=== PATIENT | female | born 1985 | race Asian ===

== ENCOUNTER 2017-12-25 10:21 | Outpatient (CLI) | payer OTHER ==
--- NOTE | 2017-12-25 12:12 | ULT ---
OBSTETRICAL ULTRASOUND: Date: 12/25/17 COMPARISON: None. HISTORY: 32-year-old female undergoing evaluation for size and dates, anatomy examination. TECHNIQUE: Multiplanar Adrian scale sonographic imaging of the gravid uterus obtained. FINDINGS: A single intrauterine gestation is present, demonstrating a breech presentation. The placenta is located in the fundus with extension into the anterior and posterior aspect of the ut erine fundus. The umbilical cord and cord insertion, nose and lips, urinary bladder, spine, kidneys, intracranial c ontents, and heart appear unremarkable. Amniotic fluid index measures 12.5 cm, within normal limits. stomach unremarkable. Biometry: BPD: 5.6 cm, 23 weeks/0 days HC: 20.4 cm, 22 weeks/4 days AC: 18.2 cm, 23 weeks/0 days FL: 4.0 cm, 23 weeks/0 days Average age based on ultrasound is 22 weeks/6 days with estimated date of delivery on 04/24/18. Estimated weight is 552 gm, +/- 82 gm. IMPRESSION: Single intrauterine gestation as described above. POS: [facility]
== END 2017-12-25 10:22 | disposition home or self-care (01) ==
LOC: SCSULT 10:21
PROVIDERS: ATTEND Family Medicine
DX: Z34.92 Encounter for supervision of normal pregnancy, unspecified, second trimester (principal); Z3A.17 17 weeks gestation of pregnancy
CPT/HCPCS: 76805

== ENCOUNTER 2018-04-19 08:35 | Inpatient (IN) | payer MEDICAID, OTHER, SELFPAY ==
--- NOTE | 2018-04-15 05:11 | HP ---
HISTORY OF PRESENT ILLNESS This is a 32-year-old lady at 39 weeks gestation with EDC of 2017. She is being admitted for elective induction. She has a history of 2 prior inductions. This course has been uncomplicated. The patient has been having contractions off and on for the past week. PAST MEDICAL HISTORY: History of kidney stones. ALLERGIES: PENICILLIN. PAST SURGICAL HISTORY: Spontaneous vaginal delivery x2. FAMILY HISTORY: Positive for hypertension and heart disease. SOCIAL HISTORY: She is . She has 2 boys. She is a nonsmoker. REVIEW OF SYSTEMS: As above. PHYSICAL EXAMINATION: VITAL SIGNS: Stable, afebrile. HEARTl Clear. LUNGS: Clear. ABDOMEN: Gravid. Cervix 2 cm, 50%, -2. EXTREMITIES: With no edema. LABORATORY AND X-RAY FINDINGS: GBS positive, 3-hour GTT normal. A1c 4.7. HIV negative. Paps are n egative, GC chlamydia negative. Thyroid normal. Hepatitis B negative, RPR negative. Urine culture negative. Rubella immune A positive blood type. ASSESSMENT: 1. A 39-week intrauterine . 2. GBS positive. PLAN: 1. Routine orders. 2. Routine anesthesia orders. 3. Cytotec/Pitocin induction. 4. GBS protocol. The patient .
[2018-04-19 09:14] VITALS: BMI 21.2
[2018-04-19] MEDS ORDERED: Ibuprofen 800 MG TAB PO PRN (09:15)
[2018-04-19] MEDS ORDERED: HYDROcodone/Acetaminophen 5/325 mg Tablet PO PRN ×2 (09:15→21:48)
[2018-04-19] MEDS ORDERED: Ondansetron HCl/PF 4 MG/2 ML Vial IVP PRN ×3 (09:15→21:48)
[2018-04-19] MEDS ORDERED: NS w/ Oxytocin 10 units 500 ML IV SCH (09:15)
[2018-04-19] MEDS ORDERED: Docusate 100 MG CAP PO PRN (09:15)
[2018-04-19] MEDS ORDERED: Misoprostol 200 MCG TAB PR PRN (09:15)
[2018-04-19] MEDS ORDERED: Butorphanol Tartrate 1 MG/ML VIAL SLOW IVP PRN (09:15)
[2018-04-19] MEDS ORDERED: Promethazine HCl 25 MG/ML VIAL IM PRN ×2 (09:15→15:20)
[2018-04-19] MEDS ORDERED: Methylergonovine 0.2 MG/ML VIAL IM PRN (09:15)
[2018-04-19] MEDS ORDERED: Lidocaine 1% (PF) 30 ML VIAL SC PRN (09:15)
[2018-04-19] MEDS ORDERED: Acetaminophen 500 MG TAB PO PRN (09:15)
[2018-04-19] MEDS: Lactated Ringer's 1,000 ML IV SCH ×3 (09:34→15:42)
[2018-04-19] MEDS: CEFAZOLIN 1 GM in Sodium Chloride 0.9% 100 ML IVPB SCH ×2 (09:45→17:14)
[2018-04-19 10:25] LABS: Hemoglobin 12.9 g/dL (12.0-16.0); Mean Corpuscular HGB CONC 36.1 g/dL (32.0-36.0); Mean Corpuscular Hemoglobin 34.8 pg (27.0-31.0); Mean Corpuscular Volume 96.6 fL (78.0-98.0); Platelet Count 105 thou/uL (130-400); RBC Distribution Width 12.5 % (11.5-14.5); Red Blood Cell (RBC) Count 3.71 mill/uL (4.20-5.40); White Blood Cell (WBC) Count 6.2 thou/uL (4.8-10.8)
[2018-04-19 10:30] LABS: HBSAg Index 0.23 S/CO (0-0.99); Hep B Surf Ag Non-Reactive S/CO (NonReactive)
[2018-04-19 12:55] LABS: Syphilis Antibody Nonreactive (Nonreactive); Syphilis Antibody Index 0.05 S/CO (<1.00 Non-Reactive)
[2018-04-19] MEDS: Misoprostol 100 MCG TAB VAG SCH ×2 (13:20→16:42)
[2018-04-19] MEDS ORDERED: DISCONTINUE ALL PREVIOUS NARCOTICS FS SCH (14:45)
[2018-04-19] MEDS ORDERED: Bupivacaine 0.5% 20 ML, fentaNYL Citrate/PF 400 MCG in Sodium Chloride 0.9% 72 ML EPIDURAL SCH (14:45)
[2018-04-19] MEDS ORDERED: Lactated Ringer's 500 ML IV PRN (15:20)
[2018-04-19] MEDS ORDERED: ePHEDrine/0.9% NaCl/PF SYRINGE 50 mg/10 ml SLOW IVP PRN (15:20)
[2018-04-19] MEDS ORDERED: Naloxone HCl 0.4 mg/ml Vial IVP PRN ×2 (15:20)
[2018-04-19] MEDS ORDERED: diphenhydrAMINE 50 MG/ML VIAL IVP PRN (15:20)
[2018-04-19] MEDS ORDERED: Eucerin (Mineral Oil/Petrolatum,White) 30 gm Jar TOP PRN (15:20)
[2018-04-19] MEDS ORDERED: Acetaminophen 325 MG TAB PO PRN (15:20)
[2018-04-19] MEDS ORDERED: fentaNYL Citrate/PF 400 MCG, Bupivacaine 0.5% 20 ML in Sodium Chloride 0.9% 72 ML EPIDURAL SCH (15:30)
[2018-04-19] MEDS ORDERED: Communication Order-Pharmacy FS SCH (15:30)
[2018-04-19] MEDS: NS / Oxytocin 40 units/1000ml 1,000 ML IV PRN ×2 (17:39→18:48)
[2018-04-19] MEDS ORDERED: Acetaminophen/Codeine 30-300mg Tablet PO PRN (21:48)
[2018-04-19] MEDS ORDERED: Adacel (T-DAP) 0.5 ML VIAL IM ONE (21:48)
[2018-04-19] MEDS ORDERED: NS / Oxytocin 40 units/1000ml 1,000 ML IV SCH (21:48)
[2018-04-19] MEDS ORDERED: Bisacodyl 10 MG SUPP PR PRN (21:48)
[2018-04-19] MEDS ORDERED: Milk Of Magnesia 30 ML UDCUP PO PRN (21:48)
[2018-04-19] MEDS ORDERED: diphenhydrAMINE 25 MG CAP PO PRN (21:48)
--- NOTE | 2018-04-19 23:12 | OP ---
DATE OF SURGERY: 04/19/2018 PREOPERATIVE DIAGNOSES: 1. Term . 2. Prior vaginal delivery x2. POSTOPERATIVE DIAGNOSES: 1. Term . 2. Prior vaginal delivery x2. PROCEDURE: Spontaneous vaginal delivery. SURGEON: Abdi Bernal M.D. PROCEDURE IN DETAIL: This is a 32-year-old female, G3, P2 taken to delivery for completing pus salud. Prepped and draped sterilely. Delivered a baby girl with Apgars 9 at one minute, 9 at five mi nutes. Baby did breathe and cry vigorously upon delivery. Mother and baby did very well. Delivered placenta, 3-vessel intact. No lacerations were present. Estimated blood loss was 150 mL.
[2018-04-19] MEDS: Docusate Calcium (SURFAK) 240 MG CAP PO SCH (23:39)
[2018-04-20 06:04] LABS: Hemoglobin 11.6 g/dL (12.0-16.0); Mean Corpuscular HGB CONC 34.4 g/dL (32.0-36.0); Mean Corpuscular Hemoglobin 33.7 pg (27.0-31.0); Mean Corpuscular Volume 97.9 fL (78.0-98.0); Mean Platelet Volume 10.2 fL (7.4-10.4); Platelet Count 86 thou/uL (130-400); RBC Distribution Width 12.5 % (11.5-14.5); Red Blood Cell (RBC) Count 3.44 mill/uL (4.20-5.40); White Blood Cell (WBC) Count 8.6 thou/uL (4.8-10.8)
[2018-04-20] MEDS: Ferrous Sulfate 325 MG TAB PO SCH ×2 (08:59→18:05)
[2018-04-20] MEDS: Docusate Calcium (SURFAK) 240 MG CAP PO SCH (08:59)
[2018-04-20] MEDS ORDERED: Prenatal Vitamin 1 TAB PO SCH (09:00)
[2018-04-20] MEDS ORDERED: Bupivacaine/Epinephrine 0.25% 30 ML VIAL ONE (09:00)
[2018-04-20 20:35] VITALS: BP 112/55; TEMP 97.4
== END 2018-04-20 20:20 | disposition home or self-care (01) | DRG 775 ==
LOC: L&D 08:35 → 3SW 21:34 → EDSTATUS 04-20 14:31
PROVIDERS: ADMIT Family Medicine; ATTEND Family Medicine
PROC: 10E0XZZ Delivery of Products of Conception, External Approach (ICD-10-PCS; principal; 2018-04-19)
PROC: 3E033VJ Introduction of Other Hormone into Peripheral Vein, Percutaneous Approach (ICD-10-PCS; 2018-04-19)
DX: O99.824 Streptococcus B carrier state complicating childbirth (principal); Z3A.39 39 weeks gestation of pregnancy; Z37.0 Single live birth
CPT/HCPCS: 36415; 51702; 85027; 86780; 86850; 86900; 86901; 87340; 90715; J0595; J0690; J2001; J2405; J2550; J3010; J3490; J7050

== ENCOUNTER 2018-06-07 09:15 | Emergency (ER) | payer BC, MEDICAID ==
[~2018-06-07 09:15] MED LIST: Iopamidol 370 76% 100 ML VIAL ONE
[2018-06-07 09:44] LABS: INR-International Normal Ratio 0.9; Prothrombin Time 12.6 SEC (12.0-14.7)
[2018-06-07 09:49] LABS: ALT (SGPT) 29 U/L (8-55); Albumin 4.7 g/dL (3.5-5.0); Alkaline Phosphatase 64 U/L (40-150); Anion Gap 19 mmol/L (10-20); BUN (Urea Nitrogen) 15 mg/dL (7.0-18.7); Bilirubin, Total 0.6 mg/dL (0.2-1.2); Calc. Creatinine Clearance 0 mL/min (70-130); Calcium 9.5 mg/dL (7.8-10.44); Carbon Dioxide 20 mmol/L (22-29); Chloride 104 mmol/L (98-107); Estimated GFR-MDRD 86; Globulin 4.1 g/dL (2.4-3.5); Glucose 117 mg/dL (70-105); Hemoglobin 14.6 g/dL (12.0-16.0); Mean Corpuscular HGB CONC 33.7 g/dL (32.0-36.0); Mean Corpuscular Hemoglobin 31.9 pg (27.0-31.0); Mean Corpuscular Volume 94.6 fL (78.0-98.0); Mean Platelet Volume 13.3 fL (7.4-10.4); Platelet Count 122 thou/uL (130-400); Potassium 3.9 mmol/L (3.5-5.1); Protein, Total 8.8 g/dL (6.0-8.3); Sodium 139 mmol/L (136-145); White Blood Cell (WBC) Count 5.3 thou/uL (4.8-10.8)
[2018-06-07 09:51] LABS: CKMB 0.6 ng/mL (0-6.6); Troponin I Less than 0.010 ng/mL (< 0.028)
[2018-06-07 09:54] LABS: AST (SGOT) 32 U/L (5-34)
[2018-06-07 10:03] LABS: #Basophils 0.1 thou/uL (0.0-0.2); #Eosinphils 0.4 thou/uL (0.0-0.7); #Lymphocytes 1.5 thou/uL (1.20-3.40); #Monocytes 0.3 thou/uL (0.11-0.59); #Neutrophils 3.1 thou/uL (1.40-6.50); %Basophils 1.1 % (0.0-1.0); %Eosinophils 7.1 % (0.0-10.0); %Lymphocytes 28.1 % (21.0-51.0); %Monocytes 5.5 % (0.0-10.0); %Neutrophils 58.1 % (42.0-75.0); PLT Morphology Comment Appears Decreased
[2018-06-07] MEDS ORDERED: Mag-Al Plus 1200 MG/1200 MG/120 MG/30 ML UDCUP ONE (10:48)
[2018-06-07] MEDS ORDERED: Lidocaine Viscous Sol 2% 15 ml UD Cup ONE (10:48)
--- NOTE | 2018-06-07 11:49 | CT ---
CT ANGIO OF CHEST PERFORMED WITH INTRAVENOUS CONTRAST ENHANCEMENT WITH 3D RECONSTRUCTIONS: HISTORY: Chest pain. Six weeks uncomplicated vaginal delivery. The lungs are clear of any infiltrative process. There is subsegmental atelectasis in the lung bases . No pleural effusions. No pulmonary nodules. No significant mediastinal or hilar adenopathy. The thoracic aorta is normal in caliber. There is some questionable distal esophageal wall thickenin g. This could indicate the possibility of reflux. There is good pulmonary artery opacification. There is no Ct evidence for pulmonary embolus. Visualized liver parenchyma shows no focal abnormalities. Spleen is mildly prominent but incompletel y visualized. IMPRESSION: No CT evidence for a pulmonary embolus. POS: [facility]
== END 2018-06-07 11:06 | disposition home or self-care (01) ==
LOC: SCSER 09:15
DX: O72.3 Postpartum coagulation defects (principal); D69.6 Thrombocytopenia, unspecified; O90.89 Other complications of the puerperium, not elsewhere classified; R07.89 Other chest pain
CPT/HCPCS: 71275; 80053; 82553; 84484; 85025; 85610; 93005; 96360